=== PATIENT | female | born 2000 | race Hispanic/Latino ===

== ENCOUNTER 2021-12-19 07:05 | Emergency (ER) | payer OTHER ==
[~2021-12-19] VITALS: Ht 149.9 cm; Wt 96.6 kg
[2021-12-19] MEDS ORDERED: LIDOCAINE HCL 1% LOCAL INJ 20 ML VIAL INJ STA (07:20)
== END 2021-12-19 07:45 | disposition home or self-care (01) ==
LOC: ER 07:20
DX: S01.01XA Laceration without foreign body of scalp, initial encounter (principal); W01.198A Fall on same level from slipping, tripping and stumbling with subsequent striking against other object, initial encounter; Y93.01 Activity, walking, marching and hiking; Y92.89 Other specified places as the place of occurrence of the external cause
CPT/HCPCS: 99282

== ENCOUNTER 2024-10-31 13:06 | Emergency (ER) | payer SELFPAY ==
[~2024-10-31] VITALS: Ht 149.9 cm; Wt 96.6 kg
[2024-10-31 13:40] LABS: BASOPHILS % 0.2 % (0.0-1.0); HEMATOCRIT 45.9 % (34.2-44.1); HEMOGLOBIN 15.3 g/dL (12.0-16.0); LYMPHOCYTES # (AUTO) 0.6 (1.0-3.2); LYMPHOCYTES % 12.6 % (18.0-39.1); MEAN CORPUSCULAR HEMOGLOBIN 28.8 pg (28-32); MEAN CORPUSCULAR HGB CONC 33.3 g/dL (31-35); MEAN CORPUSCULAR VOLUME 86.3 fL (81-99); MONOCYTES # (AUTO) 0.6 (0.2-0.8); MONOCYTES % 12.6 % (4.4-11.3); NEUTROPHILS # (AUTO) 3.4 (2.1-6.9); NEUTROPHILS % 74.2 % (38.7-80.0); PLATELET COUNT 177 x10e3/uL (140-360); RED BLOOD COUNT 5.32 x10e6/uL (3.6-5.1); RED CELL DISTRIBUTION WIDTH 13.2 % (11.7-14.4); WHITE BLOOD COUNT 4.59 x10e3/uL (4.8-10.8)
[2024-10-31 13:57] LABS: CORONAVIRUS COVID-19 AG NEGATIVE (NEGATIVE); INFLUENZA A AG POSITIVE (NEGATIVE); INFLUENZA B AG NEGATIVE (NEGATIVE)
[2024-10-31 14:01] LABS: ALBUMIN 4.1 g/dL (3.5-5.0); ANION GAP 18.3 mmol/L (8-16); BILIRUBIN,TOTAL 0.5 mg/dL (0.2-1.2); CALCIUM 9.5 mg/dL (8.4-10.2); CREATININE, SERUM 0.77 mg/dL (0.57-1.11); TOTAL PROTEIN 8.3 g/dL (6.5-8.1)
[2024-10-31 14:02] LABS: POTASSIUM 3.3 mmol/L (3.5-5.1)
[2024-10-31 15:30] VITALS: TEMP 99.8
[2024-10-31] MEDS: SODIUM CHLORIDE 0.9% 1000ML 1,000 ML IV ONE (15:31)
[2024-10-31] MEDS ORDERED: IOPAMIDOL 370 MG/ML 100 ML INFUS..BTL INJ ONE (15:49)
[2024-10-31 17:27] VITALS: PULSE 97; RESP 15; O2SAT 97
== END 2024-10-31 17:37 | disposition home or self-care (01) ==
LOC: ER 13:15
DX: R50.9 Fever, unspecified (principal); J10.1 Influenza due to other identified influenza virus with other respiratory manifestations; R05.9 Cough, unspecified; R07.89 Other chest pain; R19.7 Diarrhea, unspecified; Z11.52 Encounter for screening for COVID-19
CPT/HCPCS: 36415; 71046; 71260; 80053; 84443; 84702; 85025; 85379; 87428; 93005; 99284; J7030; Q9967